=== PATIENT | male | born 1955 | race African-American/Black ===

== ENCOUNTER 2019-07-12 09:46 | Inpatient (IN) | payer OTHER ==
[~2019-07-12] VITALS: Ht 180.3 cm; Wt 96.2 kg
[2019-07-12] VITALS (10 sets, daily range): BP systolic 128–247; BP diastolic 60–138
[2019-07-12 10:20] LABS: ABSOLUTE NEUTROPHILS 3.5 thou/uL (1.4-8.2); BASOPHILS 1.1 % (0.0-2.0); EOSINOPHILS 4.1 % (0.0-3.0); HEMATOCRIT 46.8 % (42.0-52.0); HEMOGLOBIN 15.5 gm/dL (14.0-18.0); LYMPHOCYTES 38.7 % (24.0-44.0); MCH 27.9 pg (26.0-34.0); MCHC 33.1 g/dL (28.0-37.0); MCV 84.3 fL (80.0-100.0); MONOCYTES 7.9 % (1.0-8.0); PLATELET COUNT 205 thou/uL (150-400); POLYS 48.2 % (36.0-66.0); RBC 5.55 mil/uL (4.50-6.00); RDW 14.2 % (10.5-14.5); WBC 7.3 thou/uL (4.0-11.0)
[2019-07-12 10:26] LABS: ANION GAP 12 mmol/L (7-16); BUN 17 mg/dL (7-18); CALCIUM 9.3 mg/dL (8.5-10.1); CHLORIDE 102 mmol/L (98-107); CO2 26 mmol/L (21-32); CREATININE 1.4 mg/dL (0.7-1.3); GLUCOSE 127 mg/dL (74-106); POTASSIUM 3.2 mmol/L (3.5-5.1); PROTIME 10.6 Seconds (9.3-11.4); SODIUM 140 mmol/L (136-145)
[2019-07-12 10:36] LABS: SGOT 23 U/L (15-37); SGPT 36 U/L (30-65); TOTAL BILIRUBIN 0.5 mg/dL (<0.1-1.0); TOTAL PROTEIN 8.5 g/dL (6.4-8.2); TROPONIN-I <0.06 ng/mL (<0.06)
[2019-07-12 11:29] LABS: URINE BILIRUBIN NEGATIVE (Negative); URINE BLOOD TRACE (Negative); URINE CLARITY CLEAR; URINE COLOR YELLOW; URINE GLUCOSE-RANDOM* NEGATIVE (Negative); URINE KETONES NEGATIVE (Negative); URINE LEUKOCYTES-REFLEX NEGATIVE (Negative); URINE NITRITE-REFLEX NEGATIVE (Negative); URINE PROTEIN (DIPSTICK) 2+ (Negative); URINE UROBILINOGEN 0.2 E.U./dl (0.2-1.0)
[2019-07-12 11:36] LABS: AMP/METHAMP Negative (Negative); BARBITURATES Negative (Negative); BENZODIAZEPINES Negative (Negative); COCAINE Negative (Negative); METHADONE Negative (Negative); OPIATES Negative (Negative); PCP Negative (Negative)
[2019-07-12 12:21] LABS: BACTERIA-REFLEX 1-9 Few /HPF (None Seen); CASTS None Seen /LPF (None Seen); CRYSTALS None Seen /LPF (None Seen); SQUAMOUS None Seen /LPF (0-3); URINE RBC 0-2 Rare /HPF (0-2); URINE WBC-REFLEX 0-5 Rare /HPF (0-5)
[2019-07-12 12:48] LABS: ALBUMIN 3.7 g/dL (3.4-5.0); TOTAL PROTEIN 7.9 g/dL (6.4-8.2)
[2019-07-12 12:49] LABS: CHOLESTEROL 228 mg/dL (<200); HDL CHOLESTEROL 46 mg/dL (>40); LDL CHOLESTEROL 154 mg/dL (<100); TRIGLYCERIDE 141 mg/dL (<150); VLDL 28 mg/dL (<40)
[2019-07-12] MEDS ORDERED: BEANO300 UNIT PO (13:45)
--- NOTE | 2019-07-12 16:10 | EKG ---
[place] [address] [facility] [place] [address] ELECTROCARDIOGRAM REPORT Name: MARYLIN MOLINA Room #: 356-P ADM IN M.R.#: [id number] Admission: 07/12/19 Attend Phys: Lloyd Lopez MD Discharge: Date of : 51 Report #: [id number] THIS REPORT FOR: //name// [facility] ED Test Date: 2019-07-12 Test Time: 10:16:11 Pat Name: MARYLIN MOLINA Department: Room: 356 Gender: M Resource Management Planner: MA : 1955 Requested By: Haseeb Elizalde Order Number: [id number] MD: Barney Zhang Measurements Intervals [place] Rate: 79 P: 20 SD: 181 QRS: -29 QRSD: 100 T: -59 QT: 378 QTc: 434 Interpretive Statements Sinus rhythm Probable left atrial enlargement LVH with secondary repolarization abnormality No previous ECG available for comparison Electronically Signed On 07-12-2019 16:10:17 AUTOCAD TECHNICIAN by Barney Zhang [email or web address] <ELECTRONICALLY SIGNED> By: Barney Zhang MD 07/12/19 1610 1016 1016 Barney Zhang MD /PIYUSH
--- NOTE | 2019-07-12 19:21 | NUR ---
ADMITTED PATIENT TO UNIT FOR HTN. EDUCATED ON MEDS. HE IS ALERT ORIENTED X4. RESPIRATIONS ARE NON LABORED. WILL CONT WITH PLAN OF CARE.
[2019-07-13] VITALS (9 sets, daily range): BP systolic 150–185; BP diastolic 74–102
--- NOTE | 2019-07-13 04:08 | NUR ---
ASSUMED CARE FROM DAY SHIFT,PT BP ELEVATED AND TREATED PER PROTOCOL AND PRESCRIBED,NEURO STATUS WNL , SPEECH CLEAR GAIT STEADY, NO CONCERNS VOICED. SHUTTLE FINAL INSPECTOR SHOWS NSR. PT RESTED WELL THROUGHOUT HOURLY ROUNDS, BP CONINTUELY MEASURED AND TREATED. WILL CONINTUE WITH CURRENT PLAN OF CARE.
[2019-07-13 06:26] LABS: HEMATOCRIT 43.7 % (42.0-52.0); HEMOGLOBIN 14.7 gm/dL (14.0-18.0); MCH 28.2 pg (26.0-34.0); MCHC 33.6 g/dL (28.0-37.0); MCV 83.8 fL (80.0-100.0); RBC 5.21 mil/uL (4.50-6.00); RDW 14.1 % (10.5-14.5); WBC 7.6 thou/uL (4.0-11.0)
[2019-07-13 07:38] LABS: ANION GAP 12 mmol/L (7-16); BUN 15 mg/dL (7-18); CALCIUM 9.8 mg/dL (8.5-10.1); CHLORIDE 104 mmol/L (98-107); CO2 23 mmol/L (21-32); CREATININE 1.2 mg/dL (0.7-1.3); GLUCOSE 127 mg/dL (74-106); SODIUM 139 mmol/L (136-145); TROPONIN-I <0.06 ng/mL (<0.06)
--- NOTE | 2019-07-13 10:02 | 2DMMODE ---
[facility] [address] [place] [address] 2 D/M-MODE ECHOCARDIOGRAM Name: MARYLIN MOLINA Room #: 356-P ADM IN M.R.#: [id number] Admission: 07/12/19 Attend Phys: Lloyd Lopez, Discharge: Date of : 51 Report #: [id number] THIS REPORT FOR: //name// ADDENDUM APPROVED REPORT Study performed: 07/13/2019 08:16:06 EXAM: Comprehensive 2D, Doppler, and color-flow Echocardiogram Patient Location: Echo lab Room #: 358 Status: routine BSA: 2.14 HR: 71 bpm BP: 154/93 mmHg Rhythm: NSR Other Information Study Quality: Good Indications CVA/TIA Hypertension/HDD Echo Enhancing Agent Indication: Rule out Shunt Agent(s) / Amount(s) Used: Agitated Saline 7 cc 2D Dimensions RVDd: 35.09 mm IVSd: 15.70 (7-11mm) LVOT Diam: 27.29 (18-24mm) LVDd: 51.93 mm PWd: 15.83 (7-11mm) Ascending Ao: 30.13 (22-36mm) LVDs: 36.90 (25-40mm) Aortic Root: 31.34 mm IVC: 14.00 mm Volumes Left Atrial Volume (Systole) Single Plane 4CH: 54.83 mL Single Plane 2CH: 49.75 mL LA ESV Index: 27.00 mL/m2 Aortic Valve AoV Peak Neel.: 1.47 m/s AO Peak Gr.: 8.70 mmHg LVOT Max P.32 mmHg LVOT Max V: 1.04 m/s VANI Vmax: 4.12 cm2 [facility] [address] [place] [address] 2 D/M-MODE ECHOCARDIOGRAM Name: MARYLIN MOLINA Room #: 356-[facility] IN ..#: [id number] Admission: 07/12/19 Attend Phys: Lloyd Lopez, Discharge: Date of : 51 Report #: [id number] Mitral Valve E/A Ratio: 0.8 MV Decel. Time: 197.09 ms MV E Max Neel.: 0.66 m/s MV A Neel.: 0.80 m/s MV PHT: 57.16 ms IVRT: 110.73 ms Pulmonary Valve PV Peak Neel.: 1.16 m/s PV Peak Gr.: 5.37 mmHg Pulmonary Vein P Vein S: 0.60 m/s P Vein A: 0.29 m/s P Vein D: 0.43 m/s P Vein A Dur.: 87.7 msec P Vein S/D Ratio: 1.40 Left Ventricle The left ventricle is normal size. There is normal LV segmental wall motion. Mild to moderate concentric left ventricular hypertrophy. Left ventricular systolic function is normal. The left ventricular ejection fraction is within the normal range. LVEF is 55-60%. Grade I - abnormal relaxation pattern. Right Ventricle The right ventricle is normal size. The right ventricular systolic function is normal. Atria The left atrium size is normal. Interatrial septum is intact without evidence of ASD or PFO. The right atrium size is normal. Aortic Valve The aortic valve is normal in structure. No aortic regurgitation is present. There is no aortic valvular stenosis. Mitral Valve The mitral valve is normal in structure. There is no mitral valve regurgitation noted. No evidence of mitral valve stenosis. Tricuspid Valve The tricuspid valve is normal in structure. There is no tricuspid valve regurgitation noted. Pulmonic Valve The pulmonary valve is normal in structure. There is no pulmonic [address] [address] 2 D/M-MODE ECHOCARDIOGRAM Name: MARYLIN MOLINA Room #: 356-P [facility] IN M.R.#: [id number] Admission: 07/12/19 Attend Phys: Lloyd Lopez, Discharge: Date of : 51 Report #: [id number] valvular regurgitation. Great Vessels The aortic root is normal in size. IVC is normal in size and collapses >50% with inspiration. Pericardium There is no pericardial effusion. <Conclusion> The left ventricle is normal size. LVEF is 55-60%. The aortic valve is normal in structure. The mitral valve is normal in structure. The tricuspid valve is normal in structure. The pulmonary valve is normal in structure. There is no pericardial effusion. Interatrial septum is intact without evidence of ASD or PFO. <ELECTRONICALLY SIGNED> By: Demario Knight MD 07/13/19 1002 1002 1002 Demario Knight MD /INF
--- NOTE | 2019-07-13 10:59 | NUR ---
ORDERS RECEIVED FOR EVAL AND TREAT. SPOKE WITH Pt WHO STATES HE FEELS BACK TO NORMAL AND IS GETTING UP WITHOUT DIFFICULTY. Pt PASSED O.T. EVAL AND THEY DISCHARGED HIM FROM THEIR SERVICES. Pt DECLINING FORMAL P.T. EVAL STATING HE JUST GOT UP WITH O.T. WITHOUT DIFFICULTY AND HAS BEEN WALKING IN THE HALLS BY HIMSELF. Pt APPEARS SAFE FOR HOME WHEN MEDICALLY CLEAR
--- NOTE | 2019-07-13 19:45 | NUR ---
PATIENT UP ON THE HALLWAY AND ABOUT HIS ROOM. GAIT IS STEADY. DENIES PIAN OR DISTRESS. PLEASANT. NEEDS MORE CONTROL OF HIGH BP. COMPLAINT WITH CARE. WILL CONT WITH PLAN OF CARE.
[2019-07-14] VITALS (7 sets, daily range): BP systolic 144–174; BP diastolic 70–96
[2019-07-14 04:09] LABS: CALCIUM 9.1 mg/dL (8.5-10.1); CREATININE 1.2 mg/dL (0.7-1.3); POTASSIUM 3.5 mmol/L (3.5-5.1)
[2019-07-14 04:19] LABS: HEMATOCRIT 43.8 % (42.0-52.0); HEMOGLOBIN 14.5 gm/dL (14.0-18.0); MCH 27.9 pg (26.0-34.0); MCHC 33.1 g/dL (28.0-37.0); MCV 84.4 fL (80.0-100.0); RBC 5.2 mil/uL (4.50-6.00); RDW 14.1 % (10.5-14.5); WBC 7.4 thou/uL (4.0-11.0)
--- NOTE | 2019-07-14 06:25 | NUR ---
Pt. stated he slept intermittently. Has mild generalized discomfort which went away on its own. PRN tylenol ordered. hydralazine prn given at 0024 and 0624 for high BP. Will continue to monitor.
--- NOTE | 2019-07-14 07:58 | NUR ---
STATES HE SLEPT WELL LAST NIGHT. BP IS QUITE IMPROVED THIS AM. STATES HE WILL LIKE TO GO HOME TODAY. RESPIRATION ARE EVEN NON LABORED. PLEASANT WITH. UP AD ESTEFANIA. WILL CONT WITH PLAN OF CARE.
[2019-07-14] MEDS ORDERED: LIPITOR 20 MG T20 M1 PO (16:12)
[2019-07-14] MEDS ORDERED: COZAAR 50 MG TA50 MG PO (16:13)
[2019-07-14] MEDS ORDERED: NORVASC10 MG PO (16:13)
[2019-07-14] MEDS ORDERED: B-12500 MCG PO (16:14)
[2019-07-14] MEDS ORDERED: ASPIR 8181 MG PO (16:14)
--- NOTE | 2019-07-14 17:35 | NUR ---
WILL BE DISCHARGED AT THIS TIME TO HOME. HE HAS BEEN EDUCATED ON NEED TO MONITOR BP AND TAKE HIS MEDS IN SCHEDULE. HE DID VOICE UNDERSTANDING. HE IS ALERT ORIENTED X4. PLEASANT WITH CARE. HAS NOT VOICE COMPLAIN OF PAIN. WILL CONT [facility] PLAN OF CARE.
== END 2019-07-14 18:35 | disposition home or self-care (01) | DRG 69 ==
LOC: ER 09:46 → 3W 11:11 → EROBS 11:11 → 3W 13:26
PROVIDERS: Emergency Medicine; ADMIT Internal Medicine
DX: G45.9 Transient cerebral ischemic attack, unspecified (principal); I16.1 Hypertensive emergency; E87.6 Hypokalemia; I12.9 Hypertensive chronic kidney disease with stage 1 through stage 4 chronic kidney disease, or unspecified chronic kidney disease; N18.9 Chronic kidney disease, unspecified; E78.5 Hyperlipidemia, unspecified; Z87.891 Personal history of nicotine dependence; Z79.899 Other long term (current) drug therapy; I10 Essential (primary) hypertension
CPT/HCPCS: 10879

== ENCOUNTER 2019-07-18 05:55 | Inpatient (IN) | payer OTHER ==
[~2019-07-18] VITALS: Ht 180.3 cm; Wt 95.3 kg
[~2019-07-18 05:55] MED LIST: ASPIR 8181 MG PO; B-12500 MCG PO; BEANO300 UNIT PO; COZAAR 50 MG TA50 MG PO; LIPITOR 20 MG T20 M1 PO; NORVASC10 MG PO
[2019-07-18 05:56] VITALS: BP 193/100
[2019-07-18 06:52] LABS: BASOPHILS 0.5 % (0.0-2.0); EOSINOPHILS 1.6 % (0.0-3.0); HEMATOCRIT 46.2 % (42.0-52.0); HEMOGLOBIN 15.5 gm/dL (14.0-18.0); LYMPHOCYTES 27.9 % (24.0-44.0); MCH 28.5 pg (26.0-34.0); MCHC 33.5 g/dL (28.0-37.0); MCV 85.2 fL (80.0-100.0); MONOCYTES 8.3 % (1.0-8.0); PLATELET COUNT 243 thou/uL (150-400); POLYS 61.7 % (36.0-66.0); RBC 5.42 mil/uL (4.50-6.00); RDW 13.8 % (10.5-14.5); WBC 9.7 thou/uL (4.0-11.0)
[2019-07-18 06:56] LABS: ANION GAP 12 mmol/L (7-16); BUN 22 mg/dL (7-18); CALCIUM 9.3 mg/dL (8.5-10.1); CHLORIDE 101 mmol/L (98-107); CO2 23 mmol/L (21-32); CREATININE 1.4 mg/dL (0.7-1.3); GLUCOSE 125 mg/dL (74-106); POTASSIUM 3.8 mmol/L (3.5-5.1); SODIUM 136 mmol/L (136-145)
[2019-07-18 07:05] LABS: APTT 30.4 Seconds (24.5-32.8); PROTIME 10.7 Seconds (9.3-11.4)
[2019-07-18 07:07] LABS: ALBUMIN 3.9 g/dL (3.4-5.0); SGOT 37 U/L (15-37); SGPT 59 U/L (30-65); TOTAL BILIRUBIN 0.5 mg/dL (<0.1-1.0); TOTAL PROTEIN 8.4 g/dL (6.4-8.2); TROPONIN-I <0.06 ng/mL (<0.06)
[2019-07-18 07:34] VITALS: BP 122/63
[2019-07-18 08:04] VITALS: BP 137/72
[2019-07-18 08:45] VITALS: BP 145/83
[2019-07-18 15:02] VITALS: BP 170/85
[2019-07-18 19:25] VITALS: BP 182/95
[2019-07-19 03:55] VITALS: BP 156/86
[2019-07-19 05:11] LABS: ABSOLUTE NEUTROPHILS 3.8 thou/uL (1.4-8.2); BASOPHILS 0.7 % (0.0-2.0); EOSINOPHILS 1.9 % (0.0-3.0); HEMATOCRIT 41.2 % (42.0-52.0); HEMOGLOBIN 13.7 gm/dL (14.0-18.0); LYMPHOCYTES 25.6 % (24.0-44.0); MCH 28.1 pg (26.0-34.0); MCHC 33.3 g/dL (28.0-37.0); MCV 84.4 fL (80.0-100.0); MONOCYTES 9.6 % (1.0-8.0); PLATELET COUNT 228 thou/uL (150-400); POLYS 62.2 % (36.0-66.0); RBC 4.88 mil/uL (4.50-6.00); RDW 13.8 % (10.5-14.5); WBC 6.2 thou/uL (4.0-11.0)
[2019-07-19 05:30] LABS: CALCIUM 9.1 mg/dL (8.5-10.1); CREATININE 1.3 mg/dL (0.7-1.3); MAGNESIUM 2.1 mg/dL (1.8-2.4)
[2019-07-19 07:15] VITALS: BP 158/80
--- NOTE | 2019-07-19 08:21 | EKG ---
[place] [address] [address] [facility] [place] [address] ELECTROCARDIOGRAM REPORT Name: MARYLIN MOLINA Room #: 357-P ADM IN M.R.#: [id number] Admission: 07/18/19 Attend Phys: Joe Perkins Discharge: Date of : 51 Report #: [id number] THIS REPORT FOR: //name// [facility] ED Test Date: 2019-07-18 Test Time: 06:03:40 Pat Name: MARYLIN MOLINA Department: Room: 357 P Gender: M Director Patient Financial Services: MELINDA : 1955 Requested By: Joe Perkins Order Number: [id number] MD: Roel Vail Measurements Intervals [place] Rate: 77 P: -6 IN: 164 QRS: -23 QRSD: 93 T: -10 QT: 408 QTc: 462 Interpretive Statements Sinus rhythm Abnormal R-wave progression, early transition LVH with secondary repolarization abnormality Compared to ECG 07/12/2019 10:16:11 No significant changes Electronically Signed On 07-19-2019 8:20:46 PRECISION AGRICULTURE TECHNICIAN by Roel Vail [email or web address] <ELECTRONICALLY SIGNED> By: Roel [place]ail MD, [facility] 07/19/19819 2 2 Roel Vail MD, [facility] /EPI
--- NOTE | 2019-07-19 08:27 | EKG ---
[place] [address] [facility] [place] [address] ELECTROCARDIOGRAM REPORT Name: MARYLIN MOLINA Room #: 357-P ADM IN M.R.#: [id number] Admission: 07/18/19 Attend Phys: Joe Perkins Discharge: Date of : 51 Report #: [id number] THIS REPORT FOR: //name// [facility] Test Date: 2019-07-18 Test Time: 13:23:28 Pat Name: MARYLIN MOLINA Department: Room: 357 Gender: M Neon Installer: KEVIN : 1955 Requested By: Ben [place] Order Number: [id number] MD: Roel [place] Measurements Intervals [place] Rate: 71 P: -7 LA: 181 QRS: -25 QRSD: 99 T: 252 QT: 406 QTc: 442 Interpretive Statements Sinus rhythm Abnormal R-wave progression, early transition LVH with secondary repolarization abnormality Compared to ECG 07/12/2019 10:16:11 No significant changes Electronically Signed On 07-19-2019 8:26:29 SENIOR ESTIMATOR by Roel Vail [email or web address] <ELECTRONICALLY SIGNED> By: Roel Vail MD, [facility] 07/19/19 0826 1323 1323 Roel Vail MD, [facility] /EPI
[2019-07-19] MEDS ORDERED: COZAAR 50 MG TA50 M1 PO (09:22)
[2019-07-19] MEDS ORDERED: PLAVIX 75 MG TA75 MG PO (11:13)
[2019-07-19 12:41] VITALS: BP 158/80
--- NOTE | 2019-07-24 09:28 | HC ---
[facility] [place] [address] CONSULTATION Name: MARYLIN MOLINA Room #: 357-P [facility] IN M.R.#: [id number] Admission: 07/18/19 Attend Phys: Joe Perkins Discharge: 07/19/19 Date of : 51 Report #: [id number] THIS REPORT FOR: //name// CC: ALIE physician/PCP Joe LOVELACE PCP DATE OF SERVICE: 07/18/2019 HISTORY OF PRESENT ILLNESS: A 64-year-old male patient was admitted after an episode of speech difficulty and right-sided weakness. It came spontaneously and looks like the symptoms were severe when it happened. Then, they resolved spontaneously. Presently, he is asymptomatic. He was admitted recently with high blood pressure and he underwent workup that workup was reviewed. It looks like he had a carotid Doppler done, which does not show any hemodynamically significant stenosis, but his left vertebral artery was not visualized. He had an MRI of the brain, which does not show any acute changes, but multiple chronic changes were noticed. He does appear to have uncontrolled hypertension. REVIEW OF SYSTEMS: Indicate that he used to drink alcohol and he said he stopped drinking alcohol about a week ago. He used to smoke and he stopped smoking several years ago. At home, he was taking a baby aspirin. He indicated that he is able to ambulate without any assistance now and he feels back to his baseline. A 14-point review of system was otherwise unremarkable except prior history of smoking and drinking alcohol, but he does not do either one of them now. His hypertension does appear to be uncontrolled. Rest of 14-point review of system was noncontributory. PAST MEDICAL HISTORY: Positive for similar symptoms and for which he was admitted recently and I reviewed those records. SOCIAL HISTORY: He used to drink alcohol until about a week ago and he used to smoke several years ago, he stopped doing it. PHYSICAL EXAMINATION: Indicate he is alert, responsive, able to follow simple and complex command. His speech and mentation appear to be normal to me at this time. Cranial nerve examination is unremarkable and he has a good position sense on both sides. His strength looks symmetrical. I did not make him walk, but he said he was able to walk. His cardiac examination does not appear to be showing any atrial fibrillation. His pulses are palpable. He is not in any significant respiratory difficulty. He is a very well-built individual. His hearing and vision is adequate. He does not have any thyroid mass. His blood pressure now is running about 145/83. When he came in, his blood pressure was 193/100. When he came in last time, his blood pressure was even higher. Respiration is 20, pulse is 73, temperature is 97.7. [facility] [address] [place] [address] CONSULTATION Name: MARYLIN MOLINA Room #: 357-P [facility] IN M.R.#: [id number] Admission: 07/18/19 Attend Phys: Joe Perkins Discharge: 07/19/19 Date of : 51 Report #: [id number] LABORATORY DATA: His white count is normal at 9.7. His sodium is 136. He had a CT scan of the head, which was showing chronic changes, but no acute changes. IMPRESSION: Transient ischemic attack, symptoms have resolved. This patient's symptoms are most likely secondary to his uncontrolled hypertension. His left vertebral artery was not visualized on ultrasound last time. That is worrisome. We need to do an MRA on him. If that finding is real, then we should lower his blood pressure but cautiously. He is already on statin and we will closely monitor his blood pressure, especially because of vertebral artery occlusion if he does have that and then decide about further treatment after we get a look at his intracranial circulation and after we exclude any intracranial pathology. Thank you very much for this referral. <ELECTRONICALLY SIGNED> By: Wes Rocha MD 07/24/19 0928 1230 1504 Wes Rocha MD /nt
== END 2019-07-19 13:40 | disposition home or self-care (01) | DRG 69 ==
LOC: ER 05:55 → EROBS 07:28 → 3W 07:28 → ENTRNSPT 07-19 13:35 → EDTRNSPTSTS 07-19 13:38 → 3W 07-19 13:40
PROVIDERS: Emergency Medicine; Nurse Practitioner; ADMIT Hospitalist
DX: G45.9 Transient cerebral ischemic attack, unspecified (principal); N17.9 Acute kidney failure, unspecified; I16.0 Hypertensive urgency; I67.9 Cerebrovascular disease, unspecified; I10 Essential (primary) hypertension; E78.5 Hyperlipidemia, unspecified; E53.8 Deficiency of other specified B group vitamins; Z79.82 Long term (current) use of aspirin; Z79.899 Other long term (current) drug therapy; Z87.891 Personal history of nicotine dependence; Z86.73 Personal history of transient ischemic attack (TIA), and cerebral infarction without residual deficits
CPT/HCPCS: 10879